=== PATIENT | male | born 1940 | race Caucasian/White ===

== ENCOUNTER 2016-11-23 07:43 | Emergency (ER) | payer OTHER ==
[~2016-11-23 07:43] MED LIST: BG MC; CAC650 PO; DEXPF IV; DEXTROSE IV; FLUCONAZOL200 MG/101 IV; HEP5I SC; HUMULIN R100 U/1 M1 SC; IPRATROPIUM BROM3 M2 HHN; LAC PO; MER500I IV; PROT40I IV; REG10I IV; TYL325 PO; VAN1PM IV; VANCOMYCIN PER PHARM MC; VER5I IV; ZOFI IV; [UNRECOGNIZED DRUG - CODE] IV; [UNRECOGNIZED DRUG - OTHER] IV
[2016-11-23 10:23] VITALS: BP 148/89
== END 2016-11-23 10:23 | disposition home or self-care (01) ==
LOC: ED 07:43
DX: G89.29 Other chronic pain (principal); M25.552 Pain in left hip; M54.5 Low back pain; M54.2 Cervicalgia; E66.9 Obesity, unspecified; I10 Essential (primary) hypertension; K21.9 Gastro-esophageal reflux disease without esophagitis; N40.0 Benign prostatic hyperplasia without lower urinary tract symptoms; Z98.890 Other specified postprocedural states

== ENCOUNTER 2017-03-08 14:26 | Emergency (ER) | payer OTHER ==
[2017-03-08 15:06] LABS: microscopic required? NO
[2017-03-08 15:22] LABS: urine erythrocyte NEGATIVE (NEGATIVE)
[2017-03-08 15:29] LABS: BASOPHIL % 0.3 % (0-2); PLATELET COUNT 190 x10^3mcL (130-400); RED CELL DISTRIBUTION WIDTH 13.8 % (11.5-14.5)
[2017-03-08 15:35] LABS: CALCIUM 9.6 mg/dL (8.5-10.1); CARBON DIOXIDE 28.2 mmol/L (21-32); CHLORIDE SERUM 105 mmol/L (98-107); CREATININE SERUM 1.3 mg/dL (0.7-1.3); GLUCOSE SERUM 145 mg/dL (74-106); POTASSIUM SERUM 4.1 mmol/L (3.5-5.1); SODIUM SERUM 139 mmol/L (136-145)
[2017-03-08 15:40] LABS: ALBUMIN 4.2 g/dL (3.4-5.0); ALKALINE PHOSPHATASE 66 U/L (46-116); ALT/SGPT 31 U/L (16-63); AMYLASE 58 U/L (25-115); AST/SGOT 22 U/L (15-37); BILIRUBIN TOTAL 0.3 mg/dL (0.20-1.00); LIPASE 201 IU/L (73-393); TOTAL PROTEIN, SERUM 8.1 g/dL (6.4-8.2)
[2017-03-08 18:02] VITALS: BP 162/87
== END 2017-03-08 18:02 | disposition home or self-care (01) ==
LOC: ED 14:26
PROVIDERS: Emergency Medicine
DX: K43.9 Ventral hernia without obstruction or gangrene (principal); E78.00 Pure hypercholesterolemia, unspecified; Z90.49 Acquired absence of other specified parts of digestive tract; M19.90 Unspecified osteoarthritis, unspecified site; Z90.89 Acquired absence of other organs; Z88.0 Allergy status to penicillin
CPT/HCPCS: 83880; J1885; J7030; Q9967

== ENCOUNTER 2017-04-09 09:38 | Emergency (ER) | payer OTHER ==
[~2017-04-09] VITALS: Ht 172.7 cm; Wt 93.2 kg
[2017-04-09 10:11] VITALS: BP 114/76
== END 2017-04-09 11:02 | disposition home or self-care (01) ==
LOC: ED 09:38
DX: S39.012A Strain of muscle, fascia and tendon of lower back, initial encounter (principal); M54.31 Sciatica, right side; M19.90 Unspecified osteoarthritis, unspecified site; Z88.0 Allergy status to penicillin; X58.XXXA Exposure to other specified factors, initial encounter; Y93.89 Activity, other specified; Y99.8 Other external cause status; Y92.89 Other specified places as the place of occurrence of the external cause